=== PATIENT | male | born 1995 | race Caucasian/White ===

== ENCOUNTER 2017-08-03 13:39 | Emergency (ER) | payer BC, MEDICAID ==
[2017-08-03 14:17] LABS: CHLORIDE,CL 104 mmol/L (98-107); SODIUM,NA 142 mmol/L (136-145)
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
== END 2017-08-03 14:50 | disposition home or self-care (01) ==
LOC: LL.ED 13:39
DX: T75.4XXA Electrocution, initial encounter (principal); F17.210 Nicotine dependence, cigarettes, uncomplicated; Z91.030 Bee allergy status; W86.1XXA Exposure to industrial wiring, appliances and electrical machinery, initial encounter
CPT/HCPCS: 36415; 80053; 82550; 84484; 85025; 93005; 99283

== ENCOUNTER 2021-12-06 08:10 | Emergency (ER) | payer SELFPAY ==
[2021-12-06 09:11] LABS: CORONAVIRUS COVID-19 NAA NEGATIVE (NEGATIVE); RESPIRATORY SYNCYTIAL VIR NAA NEGATIVE (NEGATIVE)
== END 2021-12-06 09:39 | disposition home or self-care (01) ==
LOC: LL.ED 08:10
DX: J98.8 Other specified respiratory disorders (principal); R09.82 Postnasal drip; F17.210 Nicotine dependence, cigarettes, uncomplicated; Z91.038 Other insect allergy status; Z20.822 Contact with and (suspected) exposure to COVID-19
CPT/HCPCS: 0241U; 87081; 87430; 99283

== ENCOUNTER → 2022-03-09 | Emergency (ER) | payer SELFPAY | LOC: LL.ED 21:30 | DX: S61.211A Laceration without foreign body of left index finger without damage to nail, initial encounter (principal); W26.8XXA Contact with other sharp object(s), not elsewhere classified, initial encounter | CPT/HCPCS: 12001; 73140-F1; 99283; 99283-25 ==

== ENCOUNTER 2024-12-25 21:52 | Emergency (ER) | payer SELFPAY ==
[2024-12-25] MEDS ORDERED: Sodium Chloride 0.9% 10 ML Syringe FLUSH PRN (21:56)
[2024-12-25 22:11] LABS: BASOPHILS ABSOLUTE AUTO 0.02 K/uL (0.00-0.20); BASOPHILS PERCENT AUTO 0.2 % (0.0-2.0); EOSINOPHILS ABSOLUTE AUTO 0.18 K/uL (0.00-0.50); EOSINOPHILS PERCENT AUTO 2.1 % (0.0-5.0); IMMATURE GRAN ABSOLUTE AUTO 0.00 10^3/uL (0.00-0.04); IMMATURE GRAN PERCENT AUTO 0.0 % (0.0-0.4); LYMPHOCYTES ABSOLUTE AUTO 3.20 K/uL (0.50-3.50); LYMPHOCYTES PERCENT AUTO 37.1 % (10.0-50.0); MONOCYTES ABSOLUTE AUTO 0.77 K/uL (0.00-1.00); MONOCYTES PERCENT AUTO 8.9 % (2.0-14.0); NEUTROPHILS ABSOLUTE AUTO 4.45 K/uL (1.40-7.00); NEUTROPHILS PERCENT AUTO 51.7 % (45.0-80.0); PLATELET COUNT,PLT 227 K/uL (150-350); RED BLOOD CELL COUNT 4.88 M/uL (4.33-5.41); RED CELL DISTRIBUTION WIDTH 12.2 % (11.2-14.1); WHITE BLOOD CELL COUNT,WBC 8.6 K/uL (4.0-10.2)
[2024-12-25 22:36] LABS: BLOOD UREA NITROGEN,BUN 13 mg/dL (7-18); CARBON DIOXIDE,CO2 27.6 mmol/L (21.0-32.0); CHLORIDE,CL 103 mmol/L (98-107); CREATININE 0.72 mg/dL (0.51-1.17); GLUCOSE RANDOM 104 mg/dL (70-99); POTASSIUM,K 3.2 mmol/L (3.5-5.1); SODIUM,NA 143 mmol/L (136-145)
[2024-12-25 22:37] LABS: CREATINE KINASE,CK 105.0 U/L (26-308); ESTIMATED GFR 126 mL/min (>=60)
[2024-12-25 22:38] LABS: ETHANOL BLOOD MEDICAL 0.129 g/dL (0.000-0.080)
[2024-12-25] MEDS: Potassium Chloride 20 MEQ Tab.ER PO ONE (23:00)
== END 2024-12-25 23:30 | disposition home or self-care (01) ==
LOC: LL.ED 21:52
DX: T75.4XXA Electrocution, initial encounter (principal); S69.91XA Unspecified injury of right wrist, hand and finger(s), initial encounter; S69.92XA Unspecified injury of left wrist, hand and finger(s), initial encounter; F17.200 Nicotine dependence, unspecified, uncomplicated; Z91.09 Other allergy status, other than to drugs and biological substances; W86.8XXA Exposure to other electric current, initial encounter
CPT/HCPCS: 36415; 80048; 80307; 82550; 84484; 85025; 93005; 99284; A9270